=== PATIENT | female | born 1945 | race Hispanic/Latino ===

== ENCOUNTER 2017-11-28 10:13 | Emergency (ER) | payer MEDICARE ==
[~2017-11-28] VITALS: Ht 157.5 cm; Wt 68.6 kg
[2017-11-28] MEDS ORDERED: DIPHENHYDRAMINE HCL INJ 50 MG/ML VIAL IM ONE (10:45)
[2017-11-28] MEDS ORDERED: METHYLPREDNISOLONE SOD SUCC 125 MG/2ML VIAL IM ONE (10:45)
[2017-11-28 10:58] VITALS: BP 165/86
== END 2017-11-28 11:05 | disposition home or self-care (01) ==
LOC: FSED 10:13
DX: L50.9 Urticaria, unspecified (principal); T78.40XA Allergy, unspecified, initial encounter
CPT/HCPCS: 96372; 99283; J1200; J2930